=== PATIENT | male | born 1990 | race Caucasian/White ===

== ENCOUNTER 2016-11-15 22:58 | Emergency (ER) | payer SELFPAY ==
--- NOTE | 2016-11-15 23:17 | EDM.PDOC ---
ED HPI GENERAL MEDICAL PROBLEM - General Chief Complaint: Lower Extremity Injury/Pain Stated Complaint: right calf pain Time Seen by Provider: 11/15/16 23:10 Source of Information: Reports: Patient History Limitations: Reports: No Limitations - History of Present Illness INITIAL COMMENTS - FREE TEXT/NARRATIVE: Patient was at work running/jogging when he felt a snap/pop in the right lower leg in the calf area. He has full range of motion to his ankle, knee. Was able to ambulate after feeling the injury, but the pain has increased to a 7/10 and he does complain of difficulty standing due to the pain. He did not fall, no LOC. No other complaints tonight. Onset: Today, Sudden Location: Reports: Lower Extremity, Right Quality: Reports: Sharp Severity: Moderate Worsens with: Reports: Movement Right Leg Pain Score (Numeric/FACES): 3 - Related Data Allergies Allergy/AdvReac Type Severity Reaction Status Date / Time No Known Allergies Allergy Verified 11/15/16 23:02 Home Meds: Home Meds . [No Known Home Meds] 11/15/16 [History] Past Medical History - Past Health History Medical/Surgical History: Denies Medical/Surgical History Social & Family History - Tobacco Use Smoking Status *Q: Never Smoker Review of Systems - Review of Systems Review Of Systems: See Below Constitutional: Reports: No Symptoms Eyes: Reports: No Symptoms Ears: Reports: No Symptoms Nose: Reports: No Symptoms Mouth/Throat: Reports: No Symptoms Respiratory: Reports: No Symptoms Cardiovascular: Reports: No Symptoms GI/Abdominal: Reports: No Symptoms Genitourinary: Reports: No Symptoms Musculoskeletal: Reports: Leg Pain Skin: Reports: No Symptoms Neurological: Reports: No Symptoms Psychiatric: Reports: No Symptoms ED EXAM, GENERAL - Physical Exam Exam: See Below Exam Limited By: No Limitations General Appearance: Alert, WD/WN, Mild Distress Eye Exam: Bilateral Eye: EOMI, PERRL Extremities: Normal Range of Motion, Normal Capillary Refill, Pedal Edema, Leg Pain (bilateral lower leg edema. Right is not worse than the left. Right calf pain. No joint swelling to knee or ankle.), Other (knee examination resulted in negative Lochman and varus/valgus testing). No: Joint Swelling Neurological: Alert, Oriented, CN II-XII Intact Psychiatric: Normal Affect, Normal Mood Skin Exam: Warm, Dry, Intact, Normal Color, No Rash Course - Vital Signs Last Recorded V/S: Last Vital Signs Temp 37.8 C 11/15/16 23:04 Pulse 92 11/15/16 23:04 Resp 18 11/15/16 23:04 BP 153/94 H 11/15/16 23:04 Pulse Ox 97 11/15/16 23:04 - Re-Assessments/Exams Free Text/Narrative Re-Assessment/Exam: 11/15/16 23:49 x-rays negative for acute fracture. Departure - Departure Time of Disposition: 00:14 Disposition: Home, Self-Care 01 Condition: Good Clinical Impression: Strain of calf muscle - Discharge Information Instructions: Muscle Strain, [id number], RICE for Routine Care of Injuries, [id number] Additional Instructions: I have included instructions for care of acute muscle injuries. If your leg does not improve in 5-7 days follow up with primary doctor to have physical therapy started. You may also need to have an MRI to rule out muscle, ligament, tendon, cartilage damage. Rest, elevate, compress, and elevate your leg. Take ibuprofen and tylenol as needed for pain and swelling. You may also use some topical pain analgesic like icy/hot, aspercreme, etc. Please call if you have any questions or concerns. - Problem List & Annotations (1) Strain of calf muscle SNOMED Code(s): 709997140 Code(s): S86.819A - STRAIN OF MUSC/TEND AT LOWER LEG LEVEL, UNSP LEG, INIT Status: Acute Priority: Low Current Visit: Yes Qualifiers: Encounter type: initial encounter Laterality: right Qualified Code(s): S86.811A - Strain of other muscle(s) and tendon(s) at lower leg level, right leg , initial encounter - Problem List Review Problem List Initiated/Reviewed/Updated: Yes - Assessment/Plan Assessment:: right calf strain Plan: Continue to monitor for any additional bleeding. 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 Seeing as this is the only time she has had an extended episode of this nature, I would not necessarily recommend a visit unless this becomes chronic. Continue to apply ice and pinch at the top of the nose. Please see the included take home instructions. Please call us with any questions or concerns.
== END 2016-11-16 00:15 | disposition home or self-care (01) ==
LOC: VM.ED 22:58
DX: S86.811A Strain of other muscle(s) and tendon(s) at lower leg level, right leg, initial encounter (principal); Y93.02 Activity, running; Y99.0 Civilian activity done for income or pay
CPT/HCPCS: 73560-RT; 73590-RT; 99283

== ENCOUNTER 2017-07-23 18:24 | Emergency (ER) | payer OTHER, BC ==
[2017-07-23] MEDS ORDERED: Silver Sulfadiazine 1% Crm 50 GM Tube TOP ONE (18:34)
--- NOTE | 2017-07-23 18:34 | EDM.PDOC ---
ED HPI GENERAL MEDICAL PROBLEM - General Chief Complaint: Skin Complaint Stated Complaint: got burned at work Time Seen by Provider: 07/23/17 18:26 Source of Information: Reports: Patient History Limitations: Reports: No Limitations - History of Present Illness INITIAL COMMENTS - FREE TEXT/NARRATIVE: Patient was clearing a jam in one of the machines at work and got hot glue on his left thumb. Some burn cream applied at work. He is here to get this looked at and since he was on the job, he has to do a employer test for urine. He has no other complaints. One blister to thumb. Onset: Today, Sudden Location: Reports: Upper Extremity, Left Quality: Reports: Burning Severity: Mild Improves with: Reports: Cold Therapy Associated Symptoms: Reports: No Other Symptoms - Related Data Allergies Allergy/AdvReac Type Severity Reaction Status Date / Time No Known Allergies Allergy Verified 03/05/17 23:48 Home Meds: Home Meds . [No Known Home Meds] 11/15/16 [History] ED ROS GENERAL - Review of Systems Review Of Systems: See Below Constitutional: Reports: No Symptoms HEENT: Reports: No Symptoms Respiratory: Reports: No Symptoms Cardiovascular: Reports: No Symptoms Endocrine: Reports: No Symptoms GI/Abdominal: Reports: No Symptoms : Reports: No Symptoms Musculoskeletal: Reports: No Symptoms Skin: Reports: Burn(s) Neurological: Reports: No Symptoms Psychiatric: Reports: No Symptoms Hematologic/Lymphatic: Reports: No Symptoms Immunologic: Reports: No Symptoms ED EXAM, SKIN/RASH Exam: See Below Exam Limited By: No Limitations General Appearance: Alert, WD/WN, No Apparent Distress Skin: Wound/Incision (burn to inner area of PIP joint on thumb between thumb and index finger. 1 blister noted. 1st degree burn) Course - Re-Assessments/Exams Free Text/Narrative Re-Assessment/Exam: 07/23/17 18:33 burn covered in silvadene and non stick gauze Departure - Departure Time of Disposition: 18:39 Disposition: Home, Self-Care 01 Condition: Good Clinical Impression: Burn, thumb, first degree - Discharge Information Instructions: Burn Care, Adult, [id number] Forms: ED Department Discharge Additional Instructions: Keep the area covered for the next 24 hours and use the silvadene as needed If the blister breaks, cover the wound with gauze until that is no longer oozing and is dry Apply the silvadene ointment 2-4 times a day as needed Try to keep any open areas of skin clean and dry May shower, but do not soak your thumb in any water until blister has healed and no open skin is exposed Follow up with your primary doctor as needed for symptom management - Problem List & Annotations (1) Burn, thumb, first degree SNOMED Code(s): 07032887 Code(s): T23.119A - BURN OF FIRST DEGREE OF UNSP THUMB (NAIL), INIT ENCNTR Status: Acute Priority: Low Qualifiers: Encounter type: initial encounter Laterality: left Qualified Code(s): T23.112A - Burn of first degree of left thumb (nail), initial encounter - Problem List Review Problem List Initiated/Reviewed/Updated: Yes - Assessment/Plan Assessment:: left thumb burn, 1st degree Plan: Keep the area covered for the next 24 hours and use the silvadene as needed If the blister breaks, cover the wound with gauze until that is no longer oozing and is dry Apply the silvadene ointment 2-4 times a day as needed Try to keep any open areas of skin clean and dry May shower, but do not soak your thumb in any water until blister has healed and no open skin is exposed Follow up with your primary doctor as needed for symptom management
== END 2017-07-23 18:54 | disposition home or self-care (01) ==
LOC: VM.ED 18:24
DX: T23.212A Burn of second degree of left thumb (nail), initial encounter (principal); X12.XXXA Contact with other hot fluids, initial encounter
CPT/HCPCS: 16000; 99282; A9270-GY

== ENCOUNTER 2020-05-12 19:38 | Emergency (ER) | payer BC, OTHER ==
[2020-05-12] MEDS ORDERED: Sodium Chloride 0.9% 100 ML ONE (19:54)
[2020-05-12 19:58] LABS: CHLORIDE,CL 105 mmol/L (98-107); SODIUM,NA 144 mmol/L (136-145)
[2020-05-12] MEDS ORDERED: ceFAZolin 1 GM Vial ONE (19:58)
[2020-05-12 20:00] LABS: ANION GAP 14.7 mmol/L (5-15)
[2020-05-12] MEDS ORDERED: fentaNYL 50 MCG/ML SDV ONE (20:01)
[2020-05-12] MEDS ORDERED: Ondansetron 4 MG/2 ML SDV ONE (20:01)
[2020-05-12 20:13] LABS: PTT,PARTIAL THROMBOPLSTIN TIME 23.3 SEC (25.6-32.8)
[2020-05-12] MEDS ORDERED: ceFAZolin 1 GM Vial IVPUSH ONE (20:13)
[2020-05-12] MEDS ORDERED: Ondansetron 4 MG/2 ML SDV IV ONE (20:14)
[2020-05-12] MEDS ORDERED: Sodium Chloride 0.9% 10 ML Syringe FLUSH PRN ×2 (20:14)
[2020-05-12] MEDS ORDERED: diphenhydrAMINE 50 MG/ML SDV IVPUSH ONE (20:14)
[2020-05-12 20:15] LABS: BARBITURATE SCREEN,URINE NEGATIVE (NEGATIVE); BENZODIAZEPINES SCREEN,URINE NEGATIVE (NEGATIVE); EDDP,URINE SCREEN NEGATIVE (NEGATIVE); METHAMPHETAMINE SCREEN, URINE NEGATIVE (NEGATIVE); TCA SCREEN,URINE NEGATIVE (NEGATIVE); THC SCREEN,URINE 50 NG/ML NEGATIVE (NEGATIVE)
[2020-05-12] MEDS ORDERED: Diphtheria,Pertussis(Acell),Tetanus Vaccine 0.5 ML Syringe ONE (20:19)
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
== END 2020-05-12 20:23 | disposition short-term general hospital (02) ==
LOC: VM.ED 19:38
DX: S31.130A Puncture wound of abdominal wall without foreign body, right upper quadrant without penetration into peritoneal cavity, initial encounter (principal); Z20.822 Contact with and (suspected) exposure to COVID-19; Z23 Encounter for immunization; W34.00XA Accidental discharge from unspecified firearms or gun, initial encounter
CPT/HCPCS: 36415; 71045; 72170; 80048; 80305-QW; 80307; 81001; 85025; 85610; 85730; 86850; 86900; 86901; 86927; 90471; 96365; 96375; 99284; 99285-25; U0002

== ENCOUNTER 2021-04-21 17:48 | Emergency (ER) | payer BC | END 2021-04-21 18:25 | disposition home or self-care (01) | LOC: VM.ED 17:48 | DX: R20.2 Paresthesia of skin (principal); R20.0 Anesthesia of skin; I10 Essential (primary) hypertension | CPT/HCPCS: 99283; 99284 ==

== ENCOUNTER 2022-05-03 09:57 | Emergency (ER) | payer MEDICAID | END 2022-05-03 10:30 | disposition home or self-care (01) | LOC: VM.ED 09:57 | DX: S39.011A Strain of muscle, fascia and tendon of abdomen, initial encounter (principal); I10 Essential (primary) hypertension; Z79.899 Other long term (current) drug therapy; Z98.890 Other specified postprocedural states | CPT/HCPCS: 99283 ==

== ENCOUNTER 2025-01-26 09:03 | Emergency (ER) | payer OTHER, BC ==
[2025-01-26 09:17] VITALS: BP 137/68; PULSE 87
== END 2025-01-26 09:57 | disposition home or self-care (01) ==
LOC: VM.ED 09:03
DX: S86.111A Strain of other muscle(s) and tendon(s) of posterior muscle group at lower leg level, right leg, initial encounter (principal); I10 Essential (primary) hypertension; Z79.899 Other long term (current) drug therapy; X58.XXXA Exposure to other specified factors, initial encounter
CPT/HCPCS: 99283